=== PATIENT | male | born 1965 | race Caucasian/White ===

== ENCOUNTER 2025-05-20 16:40 | Inpatient (IN) | payer SELFPAY ==
[2025-05-20] MEDS ORDERED: Nitroglycerin 2% Ointment 1 INCH/1 GM Packet ONE (17:29)
[2025-05-20 18:06] LABS: Glucose, Urine (Dipstick) >=1000 mg/dL (Negative); Leukocyte Negative (Negative); Protein, Urine (Dipstick) Negative (Neg-Trace); Specific Gravity, Urine 1.020 (1.005-1.030)
[2025-05-20 18:06] LABS: ALT (SGPT) 26 U/L (Less than 45); AST (SGOT) 24 U/L (11-34); Albumin 3.7 g/dL (3.1-4.5); Alkaline Phosphatase 60 U/L (40-110); Anion Gap 15 mmol/L (10-20); BUN (Urea Nitrogen) 13 mg/dL (8.4-25.7); Bilirubin, Total 0.7 mg/dL (0.3-1.2); Calc. Creatinine Clearance 0 mL/min (70-130); Calcium 8.4 mg/dL (7.8-10.44); Carbon Dioxide 22 mmol/L (22-29); Chloride 104 mmol/L (98-107); Globulin 2.9 g/dL (2.4-3.5); Glucose 246 mg/dL (70-105); Lipase 62 U/L (8-78); Magnesium 1.6 mg/dL (1.6-2.6); Potassium 4.5 mmol/L (3.5-5.1); Sodium 136 mmol/L (136-145)
[2025-05-20 18:08] LABS: #Basophils 0.05 10x3/uL (0.0-0.2); #Eosinophils 0.20 10x3/uL (0.0-0.5); #Monocytes 0.49 10x3/uL (0.0-1.1); #Neutrophils 4.60 10x3/uL (1.5-8.4); %Basophils 0.7 % (0.0-2.0); %Eosinophils 2.7 % (0.0-6.0); %Lymphocytes 27.8 % (18.0-47.0); %Monocytes 6.6 % (0.0-10.0); %Neutrophils 61.9 % (40.0-75.0); Hematocrit 44.1 % (38.8-50.0); Hemoglobin 14.8 g/dL (13.5-17.5); Mean Corpuscular Hemoglobin 28.9 pg (27.0-33.0); Mean Corpuscular Volume 86.1 fL (81.2-95.1); Platelet Count 260 10x3/uL (150-450); Red Blood Cell (RBC) Count 5.12 10x6/uL (4.32-5.72); White Blood Cell (WBC) Count 7.42 10x3/uL (3.5-10.5)
[2025-05-20 18:28] LABS: CAUTI Indications for Culture Pelvic or flank pain; RBC/HPF 0-3 HPF (0-3)
[2025-05-20 18:29] LABS: Bacteria/HPF 1+ HPF (None Seen)
[2025-05-20 18:30] LABS: Mucous/LPF 1+ LPF (<2+)
[2025-05-20 18:35] LABS: Urine Culture Reflex No No
[2025-05-20 18:39] LABS: Troponin I Less than 0.010 ng/mL (< 0.028)
[2025-05-20 20:48] LABS: Troponin I Less than 0.010 ng/mL (< 0.028)
[2025-05-20] MEDS ORDERED: HYDROmorphone 0.5 MG/0.5 ML SYRINGE ONE (21:12)
[2025-05-20] MEDS ORDERED: Ondansetron PF 4 MG/2 ML Vial IVP PRN (23:08)
[2025-05-20] MEDS ORDERED: Calcium Carbonate 500 MG ChewTAB PO PRN (23:08)
[2025-05-20] MEDS ORDERED: Dextrose 50% Abboject 50 ML SYRINGE SLOW IVP PRN (23:08)
[2025-05-20] MEDS ORDERED: Senokot S 8.6-50 MG TAB PO PRN (23:08)
[2025-05-20] MEDS ORDERED: Guaifenesin DM 100-10/5 ML UDCUP PO PRN (23:08)
[2025-05-20] MEDS ORDERED: Glucagon 1 MG/ML KIT IM PRN (23:08)
[2025-05-20] MEDS ORDERED: Enoxaparin 40 MG (0.4 mL) SYRINGE ONE (23:20)
[2025-05-20] MEDS ORDERED: Enoxaparin 100 MG (1 mL) SYRINGE ONE (23:20)
[2025-05-21] MEDS: Lidocaine 2% Viscous Solution 10 ML, Aluminum & Magnesium Hydroxide 30 ML SSW SCH (00:03)
[2025-05-21 00:04] VITALS: BMI 42.7
[2025-05-21] MEDS: Pantoprazole 40 MG VIAL IVP SCH (00:04)
[2025-05-21] MEDS: Nitroglycerin 0.4 MG TAB (25 Tab Bottle) SL PRN (00:11)
[2025-05-21] MEDS: FLU (Fluarix Triv) 25-26 (6MOS UP)/PF 45 MCG/0.5 ML Syringe IM ONE (02:44)
[2025-05-21 05:36] LABS: Anion Gap 14 mmol/L (10-20); BUN (Urea Nitrogen) 14 mg/dL (8.4-25.7); Calc. Creatinine Clearance 195 mL/min (70-130); Calcium 8.4 mg/dL (7.8-10.44); Carbon Dioxide 25 mmol/L (22-29); Cardiac Risk 4.0 (Less than 4.5); Chloride 103 mmol/L (98-107); Cholesterol 123 mg/dl (< 200 Desired); Glucose 190 mg/dL (70-105); HDL Cholesterol 31 mg/dL (>60 Neg Risk); LDL Cholesterol, Calculated 37 mg/dL; Potassium 3.9 mmol/L (3.5-5.1); Sodium 138 mmol/L (136-145); Triglycerides 275 mg/dL (Less than 150)
[2025-05-21 05:42] LABS: Troponin I Less than 0.010 ng/mL (< 0.028)
[2025-05-21] MEDS: Pantoprazole 40 MG DR.TAB PO SCH (09:11)
[2025-05-21] MEDS: Carvedilol 3.125 MG TAB PO SCH (09:11)
[2025-05-21] MEDS: Aspirin 81 mg Enteric Coated Tablet PO SCH (09:11)
[2025-05-21] MEDS: Glimepiride 2 MG TAB PO SCH (09:12)
[2025-05-21] MEDS: metFORMIN 500 MG TAB PO SCH (09:24)
[2025-05-21 17:15] VITALS: BP 165/95; TEMP 98.5
[2025-05-21] MEDS: Acetaminophen 325 MG TAB PO PRN (17:19)
== END 2025-05-21 19:00 | disposition home or self-care (01) | DRG 313 ==
LOC: CSHERS 16:40 → CSHTELE 23:11
PROVIDERS: ADMIT Student in an Organized Health Care Education/Training Program; ATTEND Student in an Organized Health Care Education/Training Program
DX: R07.9 Chest pain, unspecified (principal); Z68.41 Body mass index [BMI] 40.0-44.9, adult; Z88.5 Allergy status to narcotic agent; I10 Essential (primary) hypertension; E78.5 Hyperlipidemia, unspecified; I25.10 Atherosclerotic heart disease of native coronary artery without angina pectoris; Z95.1 Presence of aortocoronary bypass graft; K21.9 Gastro-esophageal reflux disease without esophagitis; E11.9 Type 2 diabetes mellitus without complications; Z86.73 Personal history of transient ischemic attack (TIA), and cerebral infarction without residual deficits; E66.01 Morbid (severe) obesity due to excess calories; Z79.84 Long term (current) use of oral hypoglycemic drugs; Z79.899 Other long term (current) drug therapy
CPT/HCPCS: 36415; 36416; 70450; 71045; 80048; 80053; 80061; 81001; 83036; 83690; 83735; 83880; 84484; 85025; 85379; 93005; 93010; 93306; 96372; 96374; 96375; J1171; J1650; J2470; J3010